=== PATIENT | female | born 1980 | race Caucasian/White ===

== ENCOUNTER 2021-06-20 18:22 | Emergency (ER) | payer OTHER, SELFPAY ==
[2021-06-20 18:23] VITALS: BP 130/90; PULSE 98; RESP 16; TEMP 37.3; O2SAT 99; BMI 31.1
--- NOTE | 2021-06-20 18:44 | PC.NURSE ---
PT given call light and advised MD would be in with her shortly.
--- NOTE | 2021-06-20 18:45 | XR_ITS ---
PROCEDURE INFORMATION: Exam: XR Chest Exam date and time: 06/20/2021 6:45 PM Age: 41 years old Clinical indication: Cough and other: Congestion; Prior surgery; Surgery date: 6+ months; Surgery type: Cardiac stents; Patient HX: Cough, congestion, smoker. ; Additional info: Cough, congesiton TECHNIQUE: Imaging protocol: XR of the chest. Views: 1 view. Total images: 1 COMPARISON: CR CXR CHEST(2 VIEWS-NOT PORTABLE) 04/12/2015 9:00 AM FINDINGS: Lungs: Mild apical hyperlucency and vascular attenuation suspicious for emphysematous changes. Pulmonary vasculature grossly normal. No gross pulmonary infiltrates or edema pattern. Pleural spaces: No pleural effusion. No pneumothorax. Heart/Mediastinum: Heart size normal. No tracheal/mediastinal shift. Bones/joints: No acute osseous abnormalities are identified. IMPRESSION: 1. No acute thoracic process. 2. Suspect mild-moderate emphysematous changes in the pulmonary apices.
--- NOTE | 2021-06-20 19:14 | ECG_ITS ---
APPROVED REPORT Exam: Resting ECG HR:94 bpm ECG Measurements Heart Rate 94 AXES IL 120 P 35 QRSd 76 QRS 40 QT 348 T 48 QTc 435 Conclusion Normal sinus rhythm Low voltage QRS Borderline ECG Electronically signed by : German Wilkerson MD 06/20/2021 21:09:36
[2021-06-20 19:38] LABS: Basophils % 0.6 % (0.1-2.0); Eosinophils % 0.2 % (0.1-12.0); Hemoglobin 14.2 g/dL (12.2-16.2); Lymphocytes # 2.2 K/mm3 (0.7-4.5); Lymphocytes % 43.9 % (10-50); Mean Corpuscular HGB Conc 35.6 g/dL (31.8-35.4); Mean Corpuscular Hemoglobin 30.5 pg (27.0-31.2); Mean Corpuscular Volume 85.6 fl (81-99); Mean Platelet Volume 7.2 fl (7.4-10.4); Monocytes # 0.4 K/mm3 (0.1-1.0); Monocytes % 8.8 % (1.7-9.3); Neutrophils # 2.4 K/mm3 (1.8-7.8); Neutrophils % 46.5 % (37.0-80.0); Platelet Count 332 K/mm3 (142-424); Red Blood Count 4.67 M/mm3 (4.20-5.40); Red Cell Distribution Width 12.7 % (11.5-17.5); White Blood Count 5.1 K/mm3 (4.8-10.8)
[2021-06-20 19:42] LABS: Alanine Aminotransferase 38 U/L (12-78); Albumin Level 3.8 g/dl (3.5-5.0); Albumin/Globulin Ratio 1.2 (1.1-1.8); Alkaline Phosphatase 72 U/L (38-126); Anion Gap 9.4 mEq/L (5-15); Aspartate Amino Transferase 41 U/L (14-36); Bilirubin,Total 0.8 mg/dl (0.2-1.3); Blood Urea Nitrogen 9 mg/dl (7-17); Calcium 8.9 mg/dl (8.4-10.2); Carbon Dioxide 25 mmol/L (22.0-30.0); Chloride 103 mmol/L (98-107); Creatinine Clearance Estimated 147 mL/min (50-200); Estimated Glomerular Filt Rate 111 ml/min (>60); GFR (African American) 134 ML/MIN (>60); Globulin 3.1 g/dL (1.3-3.2); Glucose 153 mg/dl (74-100); Potassium 3.4 mmoL/L (3.5-5.1); Sodium 134 mmol/L (136-145); Total Protein,Serum 6.9 g/dl (6.3-8.2)
[2021-06-20 19:48] LABS: D-Dimer 0.73 ug/mL (0.0-0.5)
[2021-06-20 19:59] LABS: Troponin I < 0.01 ng/ml (0.00-0.034)
[2021-06-20 20:21] VITALS: BP 130/71; PULSE 80; RESP 16; TEMP 37.2; O2SAT 99
--- NOTE | 2021-06-20 20:25 | HMH.EDSOB ---
ED Disposition Clinical Impression: COVID-19 Disposition: Home, Self-Care Condition on Discharge: Good Instructions: Coronavirus Disease 2019, Preventing the Spread of Coronavirus Discharge Instructions Additional Instructions: Patient will follow up with primary care physician via telehealth as needed. Please continue your 14-day self quarantine. Please continue to drink plenty of water and eat 3 balanced meals a day. Please return back to the emergency department for any concerning symptoms such as difficulty breathing, chest pain, inability to eat and drink or any other worsening symptoms. Referrals: Patricia Ye APRN [Primary Care Provider] - Time of Disposition: 20:25 - Critical Care Critical Care Time: No Attestation: On 06/20/21, the high probability of a clinically significant, sudden or life threatening deterioration of the following system(s) required my full and direct attention, intervention and personal management. The time I documented below is in addition to time spent performing reported procedures but includes the following listed in this critical care notation. Medical Decision Making - Medical Records Medical records reviewed: Yes: I reviewed the patient's medical records. - Mitch Inquiry Pt receiving controlled substance: No Vital Signs: 06/20/21 18:23 06/20/21 20:21 Temperature 99.1 F 98.9 F Temperature Source Oral Pulse Rate 80 Pulse Rate [Right] 98 H Respiratory Rate 16 16 Blood Pressure 130/71 Blood Pressure [Right Arm] 130/90 Blood Pressure Mean [Right Arm] 103 Blood Pressure Source [Right Arm] Automatic Cuff Blood Pressure Position [Right Arm] Sitting 02 Sat by Pulse Oximetry 99 Oxygen Delivery Method Room Air Room Air - Lab Data Lab results reviewed: Yes: I reviewed the patient's lab results. Lab Results 06/20/21 19:18: WBC 5.1, RBC 4.67, Hgb 14.2, Hct 40.0, MCV 85.6, MCH 30.5, MCHC 35.6 H, RDW 12.7, Plt Count 332, MPV 7.2 L, Neut % (Auto) 46.5, Lymph % (Auto) 43.9, Mclennan % (Auto) 8.8, Eos % (Auto) 0.2, Baso % (Auto) 0.6, Neut # (Auto) 2.4, Lymph # (Auto) 2.2, Mclennan # (Auto) 0.4, Eos # (Auto) 0.0, Baso # (Auto) 0.0 06/20/21 19:18: Sodium 134 L, Potassium 3.4 L, Chloride 103, Carbon Dioxide 25, Anion Gap 9.4, BUN 9, Creatinine 0.60, Estimated Creat Clear 147, Estimated GFR 111, Est GFR ( Amer) 134, Glucose 153 H, Calcium 8.9, Total Bilirubin 0.8, AST 41 H, ALT 38, Alkaline Phosphatase 72, Troponin I < 0.01, Total Protein 6.9, Albumin 3.8, Globulin 3.1, Albumin/Globulin Ratio 1.2 06/20/21 19:18: D-Dimer 0.73 H Result diagrams: 06/20/21 19:18 06/20/21 19:18 Medical Decision Narrative: Mrs. Cardozo is a 41-year-old female with no significant past medical history who presents to the emergency department with cough and dyspnea after being diagnosed with COVID-19 on 06/17. Patient is afebrile and hemodynamically stable on arrival. Patient is well-appearing and breathing comfortably. Lung sounds are equal bilaterally with no wheezing, rales or rhonchi appreciated. Differentials to consider but not limited to include; low suspicion for PE at this time given PERC negative. Low suspicion for pneumonia given duration of symptoms and current clinical picture. Bedside chest x-ray obtained which shows emphysematous changes no consolidations or concern for pneumonia. Basic labs are nonactionable. Patient is observed in the ED and continues to sat 98 to 99% on room air. Patient is instructed to drink plenty of water and eat 3 balanced meals a day and to return to the emergency department for any concerning symptoms such as difficulty breathing, chest pain or any other concerning symptoms. Patient is discharged in stable condition. Resp/SOB HPI - General Chief Complaint: Shortness of Breath/Dyspnea Stated Complaint: COVID +, sob Time Seen by Provider: 06/20/21 18:30 Mode of Arrival: Ambulatory Limitations: No Limitations Description of Symptoms (Recalled from ER
== END 2021-06-20 20:36 | disposition home or self-care (01) ==
PROVIDERS: Emergency Provider Student in an Organized Health Care Education/Training Program; PCP Nurse Practitioner
DX: U07.1 COVID-19 (principal); E11.9 Type 2 diabetes mellitus without complications
CPT/HCPCS: 71045; 80053; 84484; 85025; 85378; 93005; 99283

== ENCOUNTER 2021-06-22 10:40 | Outpatient (CLI) | payer OTHER, SELFPAY ==
[2021-06-22] VITALS (8 sets, daily range): BP systolic 108–125; BP diastolic 59–89; PULSE 87–94; RESP 16–18; TEMP 36.8; O2SAT 97–99
== END 2021-06-22 13:26 | disposition home or self-care (01) ==
LOC: INF 10:41
PROVIDERS: PCP Nurse Practitioner; Visit Provider Nurse Practitioner
DX: U07.1 COVID-19 (principal); Z23 Encounter for immunization; R06.02 Shortness of breath; Z72.0 Tobacco use
CPT/HCPCS: 96365

== ENCOUNTER 2022-03-24 00:39 | Emergency (ER) | payer OTHER, SELFPAY ==
[2022-03-24 00:41] VITALS: BP 120/82; PULSE 101; RESP 18; TEMP 36.6; O2SAT 99; BMI 24.5
--- NOTE | 2022-03-24 01:06 | HMH.EDBACK ---
Discharge Plan Disposition Patient Disposition: Home, Self-Care Prescriptions Prescriptions: New prednisone [prednisone] 20 mg tablet 20 mg PO BID Qty: 10 0RF No Action oseltamivir 75 MG capsule 75 mg PO BID Qty: 10 0RF benzonatate 100 MG capsule 100 mg PO TIDP PRN (Reason: Cough) Qty: 30 0RF azithromycin 250 MG tablet 250 mg PO UD DOSE PK Qty: 6 0RF Rx Instructions: Take two (2) tablets today, then one (1) tablet days #2 thru #5 methylprednisolone 4 MG tablets,dose pack 4 mg PO DIRECTED 6 Days Qty: 21 0RF Referrals Follow up/Referrals: Patricia Ye, RADIAL ARM SAW OPERATOR [Primary Care Provider] - See instructions Clinical Impressions Clinical Impression: Strain of lumbar region Instructions Patient Instructions: DI for Low Back Pain Discharge ED Provider: Kvng Pineda Back Pain HPI General Chief Complaint: Back Pain/Injury Stated Complaint: low/middle back pain Time Seen by Provider: 03/24/22 01:06 Mode of Arrival: Ambulatory Source of Information: Patient and Medical Record Limitations: No Limitations Description of Symptoms (Recalled from ER Triage Doc. by RN): pt reports lower back pain since 4pm yetserday states she probably twisted wrong History of Present Illness HPI Narrative: acute lumbar pain w/o rash or fever and no trauma MD Complaint: back pain Onset (ago): hour(s) Duration: constant Similar Symptoms Previously: Yes Location: lumbar spine Radiation: none Context: turning/twisting Associated symptoms: denies other symptoms Related Data Previous Rx's Medication Instructions Recorded azithromycin 250 mg tablet 250 mg PO UD DOSE PK #6 tabs 05/11/19 benzonatate 100 mg capsule 100 mg PO TIDP PRN Cough #30 caps 05/11/19 methylprednisolone 4 mg tablets in 4 mg PO DIRECTED 6 days ##21 05/11/19 a dose pack oseltamivir 75 mg capsule 75 mg PO BID #10 caps 05/11/19 prednisone 20 mg tablet 20 mg PO BID #10 tabs 03/24/22 Allergies Allergy/AdvReac Type Severity Reaction Status Date / Time amoxicillin [AMOXICILLIN] Allergy Intermediate I-RASH Unverified 06/24/17 15:32 codeine [CODEINE] Allergy Intermediate I-RASH Unverified 06/24/17 15:32 PFSH PFSH Social History Smoking Status: Current every day smoker tobacco type: cigarettes packs per day: 1 alcohol intake: never current occupational status: other Travel in the last 8 weeks: None ROS Obtained: Yes All systems reviewed & no additional complaints except as documented Constitutional Constitutional: Denies fever(s) and Denies headache(s) Eyes Eyes: Denies diplopia ENT Ears, Nose, Mouth, and Throat: Denies headache(s) Cardiovascular Cardiovascular: Denies chest pain with activity Respiratory Respiratory: Denies cough Gastrointestinal Gastrointestingal: Denies abdominal pain Genitourinary Female Genitourinary: Denies flank pain Musculoskeletal Musculoskeletal: Reports as per HPI, Reports back pain, Reports limited range of motion and Denies radiating pain into limb Integumentary/Breasts Skin/Breast: Denies rash Neurologic Neurologic: Denies focal weakness and Denies headache(s) Physical Exam General General appearance: alert Head Head exam: normocephalic Eye Eye exam: Present PERRL and EOMI ENT ENT exam: Present mucous membranes moist Neck Neck exam: Present trachea midline Respiratory Respiratory exam: Absent respiratory distress Cardiovascular Cardiovascular exam: Present regular rate Extremities Exam Extremities exam: Present full ROM Back Exam Back exam: Present tenderness; Absent full ROM Neurological Exam Neurological exam: Present alert, oriented X3 and CN II-XII intact Skin Skin exam: Absent rash Medical Decision Making Medical Records Medical records reviewed: Yes I reviewed the patient's medical records. Mitch Inquiry Pt receiving controlled substance: No Vital Signs: 03/24/22 00:41 Temperature 97.9 F Temperature Source Oral Pulse Rate [Left] 101 H Respi
--- NOTE | 2022-03-24 01:08 | XR_ITS ---
PROCEDURE INFORMATION: Exam: XR Lumbosacral Spine Exam date and time: 03/24/2022 1:07 AM Age: 41 years old Clinical indication: Low back pain TECHNIQUE: Imaging protocol: Radiologic exam of the lumbosacral spine. Views: 2 or 3 views. COMPARISON: [facility] 08/03/2015 1:45 PM FINDINGS: Bones/joints: No acute fracture. Normal alignment. Mild endplate spurring. No significant disc height loss. Soft tissues: Unremarkable. Lungs: Visualized lung bases are clear. IMPRESSION: No acute findings.
--- NOTE | 2022-03-24 01:08 | XR_ITS ---
PROCEDURE INFORMATION: Exam: XR Thoracic Spine Exam date and time: 03/24/2022 1:08 AM Age: 41 years old Clinical indication: Pain in thoracic spine TECHNIQUE: Imaging protocol: Radiologic exam of the thoracic spine. Views: 3 views. COMPARISON: CR XR LUMBAR SPINE 2-3V 03/24/2022 1:07 AM FINDINGS: Bones/joints: Normal. No acute fracture. Normal alignment. Mild endplate spurring. Soft tissues: Unremarkable. Lungs: Visualized lungs and cardiomediastinal structures are normal. IMPRESSION: No acute findings. Recommend correlation with physical exam and if clinical concern persists consider further evaluation dedicated CT or MRI.
[2022-03-24 01:48] VITALS: BP 123/49; PULSE 84; RESP 16; TEMP 36.6; O2SAT 100
== END 2022-03-24 01:51 | disposition home or self-care (01) ==
PROVIDERS: Emergency Provider Emergency Medicine; PCP Nurse Practitioner
DX: S39.012A Strain of muscle, fascia and tendon of lower back, initial encounter (principal)
CPT/HCPCS: 72072; 72100; 99283

== ENCOUNTER 2022-11-16 01:57 | Emergency (ER) | payer OTHER, SELFPAY ==
[2022-11-16 01:58] VITALS: BP 126/83; PULSE 101; RESP 18; TEMP 36.7; O2SAT 99; BMI 30.2
[2022-11-16 02:07] VITALS: BMI 25.7
--- NOTE | 2022-11-16 02:07 | CT_ITS ---
PROCEDURE INFORMATION: Exam: CT Abdomen And Pelvis With Contrast Exam date and time: 11/16/2022 2:51 AM Age: 42 years old Clinical indication: Abdominal pain; Additional info: Low abd pain with n/v TECHNIQUE: Imaging protocol: Computed tomography of the abdomen and pelvis with contrast. Radiation optimization: All CT scans at this facility use at least one of these dose optimization techniques: automated exposure control; mA and/or kV adjustment per patient size (includes targeted exams where dose is matched to clinical indication); or iterative reconstruction. Contrast material: ISOVUE; Contrast volume: 75 ml; Contrast route: IV; REPORTING DATA: Count of CT and Cardiac NM exams in prior 12 months: This patient has received 0 known CTs and 0 known cardiac nuclear medicine studies in the 12 months prior to the current study. COMPARISON: CR XR LUMBAR SPINE 2-3V 03/24/2022 1:07 AM FINDINGS: Liver: Normal. No mass. Gallbladder and bile ducts: Normal. No calcified stones. No ductal dilation. Pancreas: Normal. No ductal dilation. Spleen: Normal. No splenomegaly. Adrenal glands: Normal. No mass. Kidneys and ureters: Normal. No hydronephrosis. Stomach and bowel: Unremarkable. No obstruction. No mucosal thickening. Appendix: No evidence of appendicitis. Intraperitoneal space: Unremarkable. No free air. No significant fluid collection. Vasculature: Unremarkable. No abdominal aortic aneurysm. Lymph nodes: Unremarkable. No enlarged lymph nodes. Urinary bladder: Unremarkable as visualized. Reproductive: Unremarkable as visualized. Bones/joints: Unremarkable. No acute fracture. Soft tissues: Unremarkable. IMPRESSION: No acute findings.
[2022-11-16 02:19] LABS: Basophils # 0.1 K/mm3 (0-0.2); Basophils % 0.6 % (0.1-2.0); Eosinophils # 0.2 K/mm3 (0.0-0.4); Eosinophils % 2.4 % (0.1-12.0); Hematocrit 44.9 % (37.0-47.0); Hemoglobin 15.3 g/dL (12.2-16.2); Lymphocytes # 4.4 K/mm3 (0.7-4.5); Lymphocytes % 42.8 % (10-50); Mean Corpuscular HGB Conc 34.1 g/dL (31.8-35.4); Mean Corpuscular Hemoglobin 30.6 pg (27.0-31.2); Mean Corpuscular Volume 89.7 fl (81-99); Mean Platelet Volume 7.2 fl (7.4-10.4); Monocytes # 0.6 K/mm3 (0.1-1.0); Neutrophils # 4.9 K/mm3 (1.8-7.8); Neutrophils % 48.2 % (37.0-80.0); Platelet Count 360 K/mm3 (142-424); Red Blood Count 5.01 M/mm3 (4.20-5.40); Red Cell Distribution Width 14.3 % (11.5-17.5); White Blood Count 10.2 K/mm3 (4.8-10.8)
[2022-11-16 02:24] LABS: Chloride 99 mmol/L (98-107); Potassium 3.7 mmoL/L (3.5-5.1); Sodium 135 mmol/L (136-145)
[2022-11-16 02:27] LABS: Alanine Aminotransferase 30 U/L (12-78); Albumin/Globulin Ratio 1.3 (1.1-1.8); Alkaline Phosphatase 148 U/L (38-126); Amylase 86 U/L (30-110); Anion Gap 16.7 mEq/L (5-15); Aspartate Amino Transferase 34 U/L (14-36); Bilirubin,Total 0.7 mg/dl (0.2-1.3); Blood Urea Nitrogen 9 mg/dl (7-17); Calcium 8.5 mg/dl (8.4-10.2); Carbon Dioxide 23 mmol/L (22.0-30.0); Creatinine Clearance Estimated 133 mL/min (50-200); Estimated Glomerular Filt Rate 110 ml/min (>60); GFR (African American) 133 ML/MIN (>60); Globulin 3.2 g/dL (1.3-3.2); Glucose 123 mg/dl (74-100); Total Protein,Serum 7.2 g/dl (6.3-8.2)
[2022-11-16 02:30] LABS: Lipase 49 U/L (23-300)
--- NOTE | 2022-11-16 02:34 | PC.NURSE ---
Pt refused to zofran as I am not nauseous now and refused the toradol d/t that's the medicine that swelling Silvia up . I verified pt's medications and allergies to medicines. Asked if pt has every had toradol, she reports well it also made someone have a migraine . She reports that she does not have one now but doesn't want one . IV Fluids started at this time and will await for MD on further orders.
[2022-11-16 02:43] LABS: Erythrocyte Sedimentation Rate 14 mm/hr (0-20)
--- NOTE | 2022-11-16 02:43 | HMH.EDABDPAI ---
Discharge Plan Disposition Patient Disposition: Home, Self-Care Chief Complaint: Abdominal Pain Prescriptions Prescriptions: No Action propranolol 10 mg tablet 10 mg PO TIDP PRN (Reason: Anxiety) Label Comments: TAKE 1 TABLET BY MOUTH THREE TIMES DAILY IF NEEDED (ANXIETY AND PALPITATIONS) famotidine 20 mg tablet 20 mg PO BID Label Comments: TAKE 1 TABLET BY MOUTH TWICE DAILY methimazole 5 mg tablet 5 mg PO BID Label Comments: TAKE 1 TABLET BY MOUTH TWICE DAILY Referrals Follow up/Referrals: Patricia Ye APRN [Primary Care Provider] - See instructions Clinical Impressions Clinical Impression: Abdominal pain, Pelvic pain Instructions Patient Instructions: DI for Acute Abdominal Pain, DI for Pelvic Pain Discharge ED Provider: Miriam (ED)Kvng Abdominal Pain HPI General Chief Complaint: Abdominal Pain Stated Complaint: lower abdominal pain Time Seen by Provider: 11/16/22 02:43 Mode of Arrival: Ambulatory Source of Information: Patient, Spouse and Medical Record Limitations: No Limitations Description of Symptoms (Recalled from ER Triage Doc. by RN): pt reports pain in lower abdoman and uterus and vagina the pt states no hx of kidney stones or ovarian cysts. 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 - no vag bleeding or d/c - no fever MD complaint: abdominal pain Onset (ago): hour(s) Consistency: constant Location: suprapubic Severity: moderate Quality: sharp Associated symptoms: nausea Related Data Home Medications Medication Instructions Recorded Confirmed famotidine 20 mg tablet 20 mg PO BID gerd 11/16/22 11/16/22 methimazole 5 mg tablet 5 mg PO BID thyroid 11/16/22 11/16/22 propranolol 10 mg tablet 10 mg PO TIDP PRN Anxiety 11/16/22 11/16/22 Allergies Allergy/AdvReac Type Severity Reaction Status Date / Time amoxicillin [AMOXICILLIN] Allergy Intermediate I-RASH Verified 03/24/22 01:40 codeine [CODEINE] AdvReac Intermediate Gastrointestinal Verified 11/16/22 04:34 Upset [facility] Disclaimer: The information contained in this section may have been updated after the patient was seen, as this information can be updated by other users. Social History Smoking Status: Unknown if ever smoked alcohol intake: never current occupational status: other Travel in the last 8 weeks: None ROS Obtained: Yes All systems reviewed & no additional complaints except as documented Physical Exam General General appearance: alert Head Head exam: normocephalic Eye Eye exam: Present PERRL and EOMI ENT ENT exam: Present mucous membranes moist Neck Neck exam: Present trachea midline Respiratory Respiratory exam: Absent respiratory distress Cardiovascular Cardiovascular exam: Present regular rate Abdominal Exam Abdominal exam: Present soft and tenderness; Absent guarding or rebound Abdominal tenderness: Present suprapubic and moderate Extremities Exam Extremities exam: Present full ROM Neurological Exam Neurological exam: Present alert, oriented X3 and CN II-XII intact; Absent motor sensory deficit Psychiatric Psychiatric exam: Present normal affect Skin Skin exam: Absent rash Medical Decision Making Medical Records Medical records reviewed: Yes I reviewed the patient's medical records. Mitch Inquiry Pt receiving controlled substance: No Vital Signs: 11/16/22 01:58 Temperature 98.1 F Temperature Source Oral Pulse Rate [Left] 101 H Respiratory Rate 18 Blood Pressure [Right Arm] 126/83 Blood Pressure Mean [Right Arm] 97 02 Sat by Pulse Oximetry 99 Oxygen Delivery Method Room Air Lab Data Lab results reviewed: Yes I reviewed the patient's lab results. Lab Results 11/16/22 02:12: WBC 10.2, RBC 5.01, Hgb 15.3, Hct 44.9, MCV 89.7, MCH 30.6, MCHC 34.1, RDW 14.3, Plt Count 360, MPV 7.2 L, Neut % (Aut
--- NOTE | 2022-11-16 02:44 | PC.NURSE ---
pt to ct scan
[2022-11-16 02:48] LABS: Procalcitonin 0.074 ng/mL (0.0-2.0)
--- NOTE | 2022-11-16 02:50 | PC.NURSE ---
pt back from ct scan via wheelchair
--- NOTE | 2022-11-16 03:05 | PC.NURSE ---
Pt attempting to given urine sample
[2022-11-16 03:11] LABS: Microscopic, Urine URINE MICROSCOPIC (MICROSCOPIC)
[2022-11-16 03:13] LABS: Appearance,Urine CLEAR (Clear); Bilirubin,Urine Negative (Negative); Blood, Urine 1+ (Negative); Color,Urine YELLOW (Yellow); Glucose,Urine (UA) Negative (Negative); Ketones,Urine Negative (Negative); Leukocyte Esterase,Urine Negative (Negative); Nitrate,Urine Negative (Negative); Protein,Urine Negative (Negative); Specific Gravity, Urine <= 1.005 (1.005-1.030)
[2022-11-16 03:22] LABS: Bacteria,Urine Trace /lpf; RBC,Urine Occasional #/hpf (0-3)
--- NOTE | 2022-11-16 04:21 | PC.NURSE ---
MD at bedside s/w pt regarding results.
--- NOTE | 2022-11-16 04:34 | PC.NURSE ---
states to order non-OB transvag u/s, order placed and calling butter grader
--- NOTE | 2022-11-16 04:35 | PC.NURSE ---
called technician anatomic pathology to notified of transvaginal ultrasound order
--- NOTE | 2022-11-16 04:40 | PC.NURSE ---
Pt asked how the u/s would be performed, this was discussed with pt. She is now refusing to have it completed d/t That's where is where is was hurting and I am not going to go through that again . notified on pt refusal. Yifan evans notified. came back into room to s/w her and her . Pt does understand her risks involved with declining to rule out ovarian torsion. States she will return to ER if her pain returns/worsening symptoms.
[2022-11-16 04:46] VITALS: BP 127/83; PULSE 89; RESP 16; TEMP 36.7; O2SAT 98
[2022-11-16 05:03] LABS: T4 (Thyroxine) 12.4 ug/dl (5.53-11.0)
[2022-11-16 05:17] LABS: Thyroid Stimulating Hormone < 0.02 uIU/mL (0.465-4.68)
== END 2022-11-16 04:59 | disposition home or self-care (01) ==
PROVIDERS: Emergency Provider Emergency Medicine; PCP Nurse Practitioner
DX: R10.30 Lower abdominal pain, unspecified (principal); R10.2 Pelvic and perineal pain
CPT/HCPCS: 74177; 80053; 81001; 82150; 83690; 84145; 84436; 84443; 85025; 85651; 86140; 96361; 96374; 96375; 99284; 99285; J0131; Q9967

== ENCOUNTER 2024-04-29 13:00 | Outpatient (RCR) | payer OTHER, SELFPAY | END 2024-05-18 16:15 | disposition home or self-care (01) | LOC: PT 13:00 | PROVIDERS: Visit Provider Orthopaedic Surgery Adult Reconstructive Orthopaedic Surgery | DX: M25.532 Pain in left wrist (principal) | CPT/HCPCS: 97035; 97110; 97163; 97530 ==

== ENCOUNTER 2024-04-30 02:05 | Emergency (ER) | payer OTHER, SELFPAY ==
[2024-04-30] VITALS (11 sets, daily range): BP systolic 115–162; BP diastolic 50–125; PULSE 60–78; RESP 16–18; TEMP 36.5; O2SAT 95–98; BMI 32.9
[2024-04-30 02:53] LABS: HIV (1&2) Antibody Rapid NONREACTIVE (NONREACTIVE)
--- NOTE | 2024-04-30 03:03 | CT_ITS ---
PROCEDURE INFORMATION: Exam: CT Chest With Contrast; Diagnostic Exam date and time: 04/30/2024 3:41 AM Age: 43 years old Clinical indication: Pain; Additional info: Egd 24h ago, upper abd pain TECHNIQUE: Imaging protocol: Diagnostic computed tomography of the chest with contrast. Radiation optimization: All CT scans at this facility use at least one of these dose optimization techniques: automated exposure control; mA and/or kV adjustment per patient size (includes targeted exams where dose is matched to clinical indication); or iterative reconstruction. Contrast material: ISOVUE; Contrast volume: 75 ml; Contrast route: IV; COMPARISON: CR XR CHEST PORTABLE 06/20/2021 7:00 PM FINDINGS: Limitations: Beam hardening/motion/noise artifact. Lungs: Biapical predominant subpleural lucencies most consistent with mild paraseptal emphysema. No lobar consolidation. Dependent/linear atelectasis. Small bilateral lower lobe tiny calcified granulomata. Pleural spaces: No pneumothorax.There are no pleural effusions present. Heart: Heart not enlarged. Coronary artery calcification is not appreciated. No significant pericardial effusion. Lymph nodes: Unremarkable. No enlarged lymph nodes. Vasculature: Thoracic aorta non dilated. No dissection. No mural hyperplasia. Three-vessel arch. Great vessels unremarkable as visualized. Pulmonary vasculature unremarkable as visualized. Diaphragm: Small hiatal hernia. Mediastinal space: No mediastinal or para esophageal free air or fluid collection. Bones/joints: No acute fracture as visualized. Soft tissues: Unremarkable. IMPRESSION: 1. Small hiatal hernia. 2. Paraseptal emphysema.
--- NOTE | 2024-04-30 03:03 | CT_ITS ---
PROCEDURE INFORMATION: Exam: CT Abdomen And Pelvis With Contrast Exam date and time: 04/30/2024 3:41 AM Age: 43 years old Clinical indication: Abdominal pain; Additional info: Egd 24h ago, upper abd pain TECHNIQUE: Imaging protocol: Computed tomography of the abdomen and pelvis with contrast. Radiation optimization: All CT scans at this facility use at least one of these dose optimization techniques: automated exposure control; mA and/or kV adjustment per patient size (includes targeted exams where dose is matched to clinical indication); or iterative reconstruction. Contrast material: ISOVUE; Contrast volume: 75 ml; Contrast route: IV; COMPARISON: CT ABDOMEN PELVIS W CON 11/16/2022 2:51 AM FINDINGS: Liver: Liver grossly intact. Stable right hepatic dome hypodensity on image 2/34 too small to characterize. Gallbladder and biliary ducts: Gallbladder is fluid containing and thin walled. No calcified stone. Approximately 4.5 mm diameter common bile duct. No intraluminal filling defect identified. Pancreas: The pancreatic parenchyma appears homogeneous and unremarkable. Spleen: Spleen grossly intact. Splenic calcification. Adrenal glands: The adrenal glands are normal. Kidneys and ureters: Stable subcentimeter right lower pole simple renal cyst. No hydronephrosis. No renal calculi. No perinephric stranding. No ureterectasis. Stomach and bowel: No evidence of gastric or intestinal viscus perforation or bowel obstruction. No bowel wall thickening. Stomach, small bowel and colon nondistended. No differential enhancement. Appendix: Appendix well-visualized and unremarkable. No evidence of appendicitis. Intraperitoneal space: No free air. No significant ascites. Vasculature: Aorta nonaneurysmal. Patent mesenteric arteries. Two right renal arteries. The lower pole moiety originates from the right common iliac artery. Lymph nodes: No enlarged lymph nodes. Urinary bladder: Urinary bladder fluid-filled and thin walled. Reproductive: Uterus anteverted and slightly leftward deviated. Adnexa unremarkable. Mildly prominent bilateral gonadal veins and left periuterine/periovarian veins. Bones/joints: No acute fracture or lytic/blastic bone lesion. Soft tissues: Unremarkable. IMPRESSION: 1. Overall nonacute appearance. No free air or evidence of perforation. 2. Mildly prominent bilateral gonadal veins and left intrapelvic vasculature. Appearance can be seen with pelvic venous insufficiency.
--- NOTE | 2024-04-30 03:05 | HMH.EDGENADL ---
Discharge Plan Disposition Patient Disposition: Home, Self-Care Condition: Good Prescriptions Prescriptions: No Action propranolol 10 mg tablet 10 mg PO TIDP PRN (Reason: Anxiety) Patient Comments: TAKE 1 TABLET BY MOUTH THREE TIMES DAILY IF NEEDED (ANXIETY AND PALPITATIONS) famotidine 20 mg tablet 20 mg PO BID Patient Comments: TAKE 1 TABLET BY MOUTH TWICE DAILY methimazole 5 mg tablet 5 mg PO BID Patient Comments: TAKE 1 TABLET BY MOUTH TWICE DAILY Referrals Follow up/Referrals: Patricia Ye APRN [Primary Care Provider] - See instructions Activity Restrictions/Add. Instructions Additional Instructions/Restrictions: You were evaluated in the ER and are appropriate for discharge at this time. Continue home medications as previously prescribed. Drink plenty of water. Take Tylenol if needed for pain. Make an appointment with your primary care doctor for reevaluation in 2 to 3 days. Also call your GI team and discuss your symptoms with them. Return to the ER with new, worsening, or otherwise concerning symptoms. Clinical Impressions Clinical Impression: Abdominal pain, Hiatal hernia Instructions Patient Instructions: DI for Acute Abdominal Pain Print Language Print Language: Martiniquais Discharge ED Provider: Ryder Hagen General Adult HPI General Chief complaint: Abdominal Pain Stated complaint: upper endoscopy yesterday, abd pain Time Seen by Provider: 04/30/24 02:25 Mode of Arrival: Ambulatory Source of Information: Patient Limitations: No Limitations Description of Symptoms (Recalled from ER Triage Doc. by RN): pt to ED with c/o 10/10 upper abd pain that radiates into bilat sides. Pt reports she had an EGD done yesterday morning and the pain started after the procedure @0930. Pt denies NVD. Pt has not taken any medication for the pain. History of Present Illness HPI narrative: 43-year-old female presents to the ER with upper abdominal pain radiating into her sides. Patient reports she had an EGD done yesterday morning and pain started after the procedure. She states it has been constant since that time. She states she has not taken medication for her symptoms. She has been able to tolerate oral intake including food and drink. She also had a normal bowel movement earlier. She is not having nausea or vomiting. She denies dysuria or hematuria. No fevers or chills. No chest pain or difficulty breathing. ROS otherwise negative Related Data Home Medications ?Medication ?Instructions ?Recorded ?Confirmed famotidine 20 mg tablet 20 mg PO BID gerd 11/16/22 11/16/22 methimazole 5 mg tablet 5 mg PO BID thyroid 11/16/22 11/16/22 propranolol 10 mg tablet 10 mg PO TIDP PRN Anxiety 11/16/22 11/16/22 Allergies Allergy/AdvReac Type Severity Reaction Status Date / Time amoxicillin [AMOXICILLIN] Allergy Intermediate I-RASH Verified 03/24/22 01:40 codeine [CODEINE] AdvReac Intermediate Gastrointestinal Verified 11/16/22 04:34 Upset [facility] Disclaimer: The information contained in this section may have been updated after the patient was seen, as this information can be updated by other users. Social History Smoking Status: Current every day smoker tobacco type: cigarettes packs per day: 1 alcohol intake: never current occupational status: other Travel in the last 8 weeks: None Other Medical History Have you received the Flu Vaccine for this season: No Have you received the Pneumonia Vaccine: No ROS Obtained: Yes All systems reviewed & no additional complaints except as documented Positive ROS per HPI Physical Exam General General appearance: alert and in no apparent distress Head Head exam: atraumatic and normocephalic Eye Eye exam: Present PERRL and EOMI ENT ENT exam: Present mucous membranes moist Neck Neck exam: Present normal inspection and full ROM Chest Chest inspection: Present symmetric chest wall rise Respiratory Respiratory exam: Absent respiratory distress or stridor Cardiovascular Cardiovascular exam: Present regular rate and normal rhythm Abdominal Exam Abdominal exam: Present soft and tenderness (Mild to moderate diffuse upper abdominal pain); Absent distention, guarding or rebound Extremities Exam Extremities exam: Present full ROM; Absent edema Back Exam Back exam: Absent CVA tenderness (R) or CVA tenderness (L) Neurological Exam Neurological exam: Present alert and oriented X3; Absent motor sensory deficit Psychiatric Psychiatric exam: Present normal affect and normal mood Skin Skin exam: Present warm and dry Medical Decision Making Medical Records Screening: Per USPSTF and CDC recommendations, given the prevalence of disease in our region, it is our hospital?s policy to screen for HIV and viral Hepatitis for all patients aged 18 and over and those with ongoing risk factors. Mitch Inquiry Pt receiving controlled substance: No Vital Signs: 04/30/24 02:07 04/30/24 02:13 04/30/24 02:30 Temperature 97.7 F Temperature Source Oral Pulse Rate 73 65 Pulse Rate [Left Radial] 77 Respiratory Rate 18 Blood Pressure 151/105 H 142/96 H Blood Pressure [Right Arm] 151/105 H Blood Pressure Mean [Right Arm] 120 Blood Pressure Source [Right Arm] Automatic Cuff Blood Pressure Position [Right Arm] Sitting 02 Sat by Pulse Oximetry 97 97 96 Oxygen Delivery Method Room Air 04/30/24 03:00 04/30/24 03:30 04/30/24 04:01 Temperature Temperature Source Pulse Rate 61 71 78 Pulse Rate [Left Radial] Respiratory Rate Blood Pressure 126/88 141/86 H 156/125 H Blood Pressure [Right Arm] Blood Pressure Mean [Right Arm] Blood Pressure Source [Right Arm] Blood Pressure Position [Right Arm] 02 Sat by Pulse Oximetry 97 97 95 Oxygen Delivery Method 04/30/24 04:32 04/30/24 05:01 04/30/24 05:30 Temperature Temperature Source Pulse Rate 65 68 73 Pulse Rate [Left Radial] Respiratory Rate Blood Pressure 162/107 H 142/97 H 130/89 Blood Pressure [Right Arm] Blood Pressure Mean [Right Arm] Blood Pressure Source [Right Arm] Blood Pressure Position [Right Arm] 02 Sat by Pulse Oximetry 95 95 98 Oxygen Delivery Method 04/30/24 06:00 04/30/24 06:11 Temperature 97.7 F Temperature Source Oral Pulse Rate 66 60 Pulse Rate [Left Radial] Respiratory Rate 16 Blood Pressure 116/90 115/50 L Blood Pressure [Right Arm] Blood Pressure Mean [Right Arm] Blood Pressure Source [Right Arm] Blood Pressure Position [Right Arm] 02 Sat by Pulse Oximetry 98 Oxygen Delivery Method Room Air Lab Data Lab Results 04/30/24 02:16: WBC 12.4 H, RBC 4.97, Hgb 15.6, Hct 46.1, MCV 92.9, MCH 31.5 H, MCHC 33.9, RDW 14.2, Plt Count 431 H, MPV 7.5, Neut % (Auto) 56.7, Lymph % (Auto) 34.4, [place] % (Auto) 4.2, Eos % (Auto) 3.1, Baso % (Auto) 1.5, Neut # (Auto) 7.0, Lymph # (Auto) 4.3, [place] # (Auto) 0.5, Eos # (Auto) 0.4, Baso # (Auto) 0.2, Sodium 137, Potassium 4.1, Chloride 107, Carbon Dioxide 25, Anion Gap 9.1, BUN 13, Creatinine 1.10 H, Estimated Creat Clear 83, Estimated GFR 54 L, Est GFR ( Amer) 66, Glucose 131 H, Lactate 0.9, Calcium 8.4, Total Bilirubin 0.7, AST 29, ALT 18, Alkaline Phosphatase 60, Total Protein 7.7, Albumin 4.2, Globulin 3.5 H, Albumin/Globulin Ratio 1.2, Lipase 81, Serum HCG, Qual Negative, HIV 1&2 Antibody Rapid Nonreactive 04/30/24 02:16 04/30/24 02:16 Orders (Tests/Meds): ED MEDICATIONS Discontinued Medications Generic Name Dose Route Start Last Admin Trade Name Freq PRN Reason Stop Dose Admin Iopamidol 75 ml 04/30/24 03:50 04/30/24 03:51 Iopamidol-370 (76%);100ml Bottle IV 04/30/24 03:51 75 ml ONCE ONE Administration Ketorolac Tromethamine 15 mg 04/30/24 03:05 04/30/24 03:12 Ketorolac 30mg/Ml Vial IV 04/30/24 03:06 15 mg ONCE ONE Administration Ondansetron HCl 4 mg 04/30/24 03:05 04/30/24 03:12 Ondansetron 4mg/2ml Vial IV 04/30/24 03:06 4 mg ONCE ONE Administration Sodium Chloride 10 ml 04/30/24 03:50 04/30/24 03:51 Sodium Chloride 0.9% 10ml Syr (Rad Only) IV 05/30/24 03:49 10 ml NEEDED PRN Administration Maintain IV Site ORDERS Category Date Time Status CT abdomen pelvis w con Stat Cat Scan 04/30/24 03:[address] chest w con Stat Cat Scan 04/30/24 03:03 Completed Complete Blood Count Auto Diff Stat Lab 04/30/24 02:16 Completed Comprehensive Metabolic Panel Stat Lab 04/30/24 02:16 Completed HCG Qualitative, Serum Stat Lab 04/30/24 02:16 Completed HIV (1&2) Antibody Rapid Stat Lab 04/30/24 02:16 Completed Hep C Ab with Reflex to RNA Stat Lab 04/30/24 02:16 Received Lactic Acid Stat Lab 04/30/24 02:16 Completed Lipase Stat Lab 04/30/24 02:16 Completed Medical Decision Narrative: In summary, this 43-year-old female presents to the emergency department today with upper abdominal pain less than 24 hours after EGD. On initial evaluation patient is hemodynamically stable, afebrile, physical exam notable for mild to moderate diffuse upper abdominal pain without rebound or guarding, no crepitus, nontoxic-appearing, cardiopulmonary exam benign, remainder of exam benign. Differential diagnosis includes but is not limited to perforation, free air, pneumomediastinum, pancreatitis, lactic acidosis, electrolyte abnormality. Based on these concerns, I ordered serum labs, CT imaging. Patient received Toradol, Zofran for treatment. Labs personally reviewed demonstrate mild leukocytosis WBC 12.4, no anemia, mild thrombocythemia, nonspecific and nonactionable, CMP without actionable electrolyte abnormalities, patient does have slight kidney dysfunction with creatinine 1.10 but no recent creatinine for comparison. She is tolerating oral intake and actively drinking water. test negative, lipase normal, lactate normal CT chest, abdomen, pelvis all personally interpreted do not demonstrate acute abnormality, there is no free air, no findings of perforation. See radiology reads for final interpretations which does mention hiatal hernia. On reassessment, patient continues to be stable and is appropriate for discharge. Patient was given instructions on symptomatic management, follow up instructions, and return precautions for the emergency department. Patient indicated understanding and was discharged in stable condition. Critical Care Critical Care Time Critical Care Time: No
[2024-04-30] MEDS: ONDANSETRON 4MG/2ML VIAL 4 MG IV (03:12)
[2024-04-30] MEDS: KETOROLAC 30MG/ML VIAL 15 MG IV (03:12)
[2024-04-30 03:14] LABS: Basophils # 0.2 K/mm3 (0-0.2); Basophils % 1.5 % (0.1-2.0); Eosinophils # 0.4 K/mm3 (0.0-0.4); Eosinophils % 3.1 % (0.1-12.0); Hematocrit 46.1 % (37.0-47.0); Hemoglobin 15.6 g/dL (12.2-16.2); Lymphocytes # 4.3 K/mm3 (0.7-4.5); Lymphocytes % 34.4 % (10-50); Mean Corpuscular HGB Conc 33.9 g/dL (31.8-35.4); Mean Corpuscular Hemoglobin 31.5 pg (27.0-31.2); Mean Corpuscular Volume 92.9 fl (81-99); Mean Platelet Volume 7.5 fl (7.4-10.4); Monocytes # 0.5 K/mm3 (0.1-1.0); Monocytes % 4.2 % (1.7-9.3); Neutrophils % 56.7 % (37.0-80.0); Platelet Count 431 K/mm3 (142-424); Red Blood Count 4.97 M/mm3 (4.20-5.40); Red Cell Distribution Width 14.2 % (11.5-17.5); White Blood Count 12.4 K/mm3 (4.8-10.8)
[2024-04-30 03:19] LABS: Albumin Level 4.2 g/dl (3.5-5.0); Chloride 107 mmol/L (98-107); Potassium 4.1 mmoL/L (3.5-5.1); Sodium 137 mmol/L (136-145)
[2024-04-30 03:21] LABS: HCG Qualitative, Serum Negative (Negative); Lactic Acid 0.9 mmol/L (0.7-2.1)
[2024-04-30 03:22] LABS: Alanine Aminotransferase 18 U/L (12-78); Albumin/Globulin Ratio 1.2 (1.1-1.8); Alkaline Phosphatase 60 U/L (38-126); Anion Gap 9.1 mEq/L (5-15); Aspartate Amino Transferase 29 U/L (14-36); Bilirubin,Total 0.7 mg/dl (0.2-1.3); Blood Urea Nitrogen 13 mg/dl (7-17); Calcium 8.4 mg/dl (8.4-10.2); Carbon Dioxide 25 mmol/L (22.0-30.0); Creatinine Clearance Estimated 83 mL/min (50-200); Estimated Glomerular Filt Rate 54 ml/min (>60); GFR (African American) 66 ML/MIN (>60); Globulin 3.5 g/dL (1.3-3.2); Glucose 131 mg/dl (74-100); Lipase 81 U/L (23-300); Total Protein,Serum 7.7 g/dl (6.3-8.2)
[2024-04-30] MEDS: SODIUM CHLORIDE 0.9% 10ML SYR (RAD ONLY) 10 ML IV (03:51)
[2024-04-30] MEDS: IOPAMIDOL-370 (76%);100ML BOTTLE 75 ML IV (03:51)
[2024-05-01 08:51] LABS: HCV Ab Non Reactive (Non Reactive)
== END 2024-04-30 06:11 | disposition home or self-care (01) ==
PROVIDERS: Emergency Provider Emergency Medicine; PCP Nurse Practitioner
DX: K44.9 Diaphragmatic hernia without obstruction or gangrene (principal); R10.11 Right upper quadrant pain; R10.12 Left upper quadrant pain
CPT/HCPCS: 71260; 74177; 80053; 83605; 83690; 84703; 85025; 86803; 87389; 96374; 96375; 99285; J1885; J2405; Q9967